=== PATIENT | male | born 1990 | race Caucasian/White ===

== ENCOUNTER 2016-10-22 17:01 | Emergency (ER) | payer BC, OTHER ==
[2016-10-22 17:08] VITALS: PULSE 61; O2SAT 97
[2016-10-22] MEDS ORDERED: TDAP ADULT 0.5 ML INJ (BOOSTRIX) IM ONE (17:30)
[2016-10-22] MEDS ORDERED: BACITRACIN OINTMENT 1 PACKET TP ONE (17:30)
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
[2016-10-22] MEDS ORDERED: CYCLOBENZAPRINE 10MG PREPACK#3 BTL TAKEHOME ONE (18:10)
[2016-10-22] MEDS ORDERED: HYDROCOD/APAP 5/325 PREPACK#6 BTL TAKEHOME ONE (18:10)
[2016-10-22 18:27] VITALS: BP 119/72; RESP 12; TEMP 98.4
== END 2016-10-22 18:25 | disposition home or self-care (01) ==
DX: S50.02XA Contusion of left elbow, initial encounter (principal); S70.02XA Contusion of left hip, initial encounter; S80.812A Abrasion, left lower leg, initial encounter; S50.812A Abrasion of left forearm, initial encounter; S50.312A Abrasion of left elbow, initial encounter; F17.200 Nicotine dependence, unspecified, uncomplicated; Z23 Encounter for immunization; V18.4XXA Pedal cycle driver injured in noncollision transport accident in traffic accident, initial encounter; Y92.410 Unspecified street and highway as the place of occurrence of the external cause; Y93.55 Activity, bike riding

== ENCOUNTER 2017-09-20 16:48 | Emergency (ER) | payer BC ==
[2017-09-20 16:54] VITALS: O2SAT 97
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
[2017-09-20] MEDS ORDERED: LET GEL TOPICAL 1 EA SYR TP ONE (17:17)
[2017-09-20] MEDS ORDERED: BACITRACIN OINTMENT 1 PACKET TP ONE (17:44)
[2017-09-20 18:20] VITALS: BP 121/78; PULSE 69; RESP 19; TEMP 98.4
== END 2017-09-20 18:21 | disposition home or self-care (01) ==
PROC: 0HQLXZZ Repair Left Lower Leg Skin, External Approach (ICD-10-PCS; principal; 2017-09-20)
DX: S81.812A Laceration without foreign body, left lower leg, initial encounter (principal); S40.811A Abrasion of right upper arm, initial encounter; S80.812A Abrasion, left lower leg, initial encounter; J45.909 Unspecified asthma, uncomplicated; Z87.891 Personal history of nicotine dependence; V18.0XXA Pedal cycle driver injured in noncollision transport accident in nontraffic accident, initial encounter; Y92.410 Unspecified street and highway as the place of occurrence of the external cause; Y99.8 Other external cause status; Y93.55 Activity, bike riding

== ENCOUNTER 2018-12-30 15:58 | Emergency (ER) | payer OTHER | END 2018-12-30 16:40 | disposition home or self-care (01) ==